=== PATIENT | male | born 1985 | race Caucasian/White ===

== ENCOUNTER 2023-12-24 07:31 | Outpatient (REF) | payer MEDICARE, MEDICAID, SELFPAY ==
--- NOTE | ~2023-12-24 | CT_ITS ---
EXAMINATION: CT CHEST WITHOUT CONTRAST CLINICAL INFORMATION: Pulmonary lesion. COMPARISON: None available. TECHNIQUE: Multidetector volumetric CT imaging of the chest was done. Axial MIP volume rendering provided. Sagittal and coronal reformatted images were obtained. This CT examination was performed using dose optimization techniques as appropriate, variously including the following: *Automated exposure control *Adjustment of mA and/or kV according to patient size (this includes techniques or standardized protocols for targeted exams where dose is matched to indication/reason for exam; i.e. extremities or head) *Use of iterative reconstruction technique DLP: 181 mGy-cm FINDINGS: Submitted for interpretation on February 10, 2024. There are bilateral, few, scattered, randomly distributed subcentimeter noncalcified pulmonary nodules, the most conspicuous in the right lower lung lobe measures 4 mm. No consolidation, pleural effusion or pneumothorax. No bronchiectasis. No honeycombing. There is a nonunion fracture in the posterior aspect of the left eighth rib. Subsegmental atelectasis versus scarring, right lung base. No lymphadenopathy, mediastinum or axillary. No aneurysm, thoracic aorta. Calcified plaques in the coronary arteries. No pericardial effusion. Multilevel spondylosis without acute fracture or gross listhesis. No lytic or blastic lesions. CT/CT chest wo IV con IMPRESSION: Nonspecific subcentimeter pulmonary nodules. Fleischner criteria: CT 3-6-month follow-up. If stable consider a CT in 2 years and 4 years in high-risk patients Fleischner guidelines were followed. Electronically signed by: Michael Claire MD 02/10/2024 02:08 PM [facility]
--- NOTE | ~2023-12-24 | CT_ITS ---
EXAMINATION: CT ABDOMEN WITH CONTRAST CLINICAL INFORMATION: Hepatic fibrosis. COMPARISON: None available. TECHNIQUE: Contiguous axial thin section helical images of the abdomen were performed following the administration of 85 cc mL of Omnipaque 350 intravenous contrast without reported immediate complications. The data set was reformatted in the coronal and sagittal planes and reviewed on an independent workstation. This CT examination was performed using dose optimization techniques as appropriate, variously including the following: *Automated exposure control *Adjustment of mA and/or kV according to patient size (this includes techniques or standardized protocols for targeted exams where dose is matched to indication/reason for exam; i.e. extremities or head) *Use of iterative reconstruction technique DLP: 226 mGy-cm FINDINGS: Submitted for interpretation on February 03, 2024. LUNG BASES: No acute airspace disease in the included lungs. LIVER, GALLBLADDER, AND BILIARY TREE: Liver measures 17 cm. Decreased enhancement pattern. No focal mass. The portal veins are patent. The intrahepatic portion of the IVC is patent. The hepatic veins are not enhanced with the IV contrast. No intrahepatic biliary ductal dilatation. Gallbladder is fluid-filled without pericholecystic fluid collection or gallbladder wall thickening. Common bile duct measures 4 mm. PANCREAS: No focal pancreatic mass. No peripancreatic fluid collection. No main pancreatic ductal dilatation. SPLEEN: 10 cm. No focal mass. ADRENAL GLANDS AND KIDNEYS: No nodular lesions, adrenal glands. Normal enhancement pattern of the renal cortex. No hydronephrosis. BOWEL LOOPS: Abundant stool within the large intestine. No intestinal obstruction pattern. Appendix is normal. No ascites. No pneumoperitoneum. LYMPH NODES: Nonspecific prominent lymph nodes, mesenteric and retroperitoneal. VASCULAR: No aneurysm or dissection, abdominal aorta. BONES: Nonunion fracture, posterior aspect left ninth rib. Multilevel thoracolumbar spondylosis. Spondylolysis pars interarticularis, L5-S1 no fully included in the exam. Small fat-containing umbilical hernia. CT/CT abdomen w IV con IMPRESSION: Hepatomegaly and steatosis. Spondylolysis pars interarticulares, L5-S1. Fleischner guidelines were followed. Electronically signed by: Michael Claire MD 02/03/2024 10:57 AM [facility] [place]
[2023-12-24] MEDS: iohexoL 350 MG/ML 100 ML INFUS..BTL 85 ML IV (09:04)
== END 2023-12-24 07:32 | disposition home or self-care (01) ==
LOC: HO.CT 07:31
PROVIDERS: Visit Provider Hospitalist
DX: K74.00 Hepatic fibrosis, unspecified (principal); K86.9 Disease of pancreas, unspecified; R91.1 Solitary pulmonary nodule
CPT/HCPCS: 71250; 74160; Q9967

== ENCOUNTER → 2023-12-24 07:41 | Outpatient (BNV) | payer MEDICARE, MEDICAID, SELFPAY | PROVIDERS: Visit Provider Radiology Diagnostic Radiology | DX: R91.8 Other nonspecific abnormal finding of lung field (principal) | CPT/HCPCS: 71250; 74160 ==

== ENCOUNTER 2024-05-27 08:10 | Outpatient (REF) | payer MEDICARE, MEDICAID, SELFPAY ==
--- NOTE | ~2024-05-27 | CT_ITS ---
CLINICAL HISTORY: F U LUNG LESION CT chest without contrast Comparison: CT/MI/SR - CT CHEST WO IV CON - 12/24/23 08:11 EDT Findings: There is mild coronary artery disease. The visualized thyroid and mediastinum are unremarkable. Several pulmonary nodules seen on the previous study are unchanged. No new nodules are noted. The upper abdomen is unremarkable. No acute fractures. IMPRESSION: 1. Pulmonary nodules are unchanged. If the patient is at high-risk consider obtaining a follow-up chest CT in 18 months. This document has been electronically signed by: Luis Armando Singh MD on 05/28/2024 07:16:26
== END 2024-05-27 08:11 | disposition home or self-care (01) ==
LOC: HO.CT 08:10
PROVIDERS: Visit Provider Hospitalist
DX: R91.8 Other nonspecific abnormal finding of lung field (principal)
CPT/HCPCS: 71250

== ENCOUNTER → 2024-05-27 08:12 | Outpatient (BNV) | payer MEDICARE, MEDICAID, SELFPAY | PROVIDERS: Visit Provider Radiology Diagnostic Radiology | DX: R91.8 Other nonspecific abnormal finding of lung field (principal) | CPT/HCPCS: 71250 ==